=== PATIENT | male | born 1985 | race Caucasian/White ===

== ENCOUNTER 2017-07-12 22:41 | Emergency (ER) | payer SELFPAY ==
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
[2017-07-12] MEDS ORDERED: Cephalexin 500 MG Cap PO ONE (23:28)
[2017-07-12] MEDS ORDERED: Diphtheria/Tetanus Toxoids,Adult (Td) 0.5 ML SDV IM ONE (23:32)
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
== END 2017-07-13 00:07 | disposition home or self-care (01) ==
LOC: FB.ED 22:41
DX: S69.92XA Unspecified injury of left wrist, hand and finger(s), initial encounter (principal); Z23 Encounter for immunization; W26.0XXA Contact with knife, initial encounter
CPT/HCPCS: 73140; 90471; 90714; 99283; A9270

== ENCOUNTER 2017-08-08 02:01 | Emergency (ER) | payer SELFPAY ==
[2017-08-08] MEDS ORDERED: Morphine 10 MG/ML Syringe IM ONE (03:32)
[2017-08-08] MEDS ORDERED: Cephalexin 500 MG Cap PO ONE (04:46)
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
--- NOTE | 2017-08-09 11:36 | CR ---
INDICATION: Post reduction. RIGHT HAND: A single frontal view of the right hand was obtained post reduction and revealed no change in position or alignment of the distal 5th metacarpal fracture fragments. ANABELLE
== END 2017-08-08 05:10 | disposition home or self-care (01) ==
LOC: FB.ED 02:01
DX: S62.336A Displaced fracture of neck of fifth metacarpal bone, right hand, initial encounter for closed fracture (principal); M19.141 Post-traumatic osteoarthritis, right hand; F17.210 Nicotine dependence, cigarettes, uncomplicated; Z91.013 Allergy to seafood; Z91.09 Other allergy status, other than to drugs and biological substances; X58.XXXA Exposure to other specified factors, initial encounter
CPT/HCPCS: 26605; 29125; 73120; 73130; 96372; 99283; A9270; J2270

== ENCOUNTER 2017-08-09 06:15 | Emergency (ER) | payer SELFPAY ==
[2017-08-09] MEDS ORDERED: HYDROmorphone 2 MG/ML SDV IM ONE (06:47)
[2017-08-09] MEDS ORDERED: Ondansetron 8 MG Tab.DIS PO ONE (06:48)
--- NOTE | 2017-08-10 12:02 | ER ---
DATE SEEN: 08/09/2017 The patient was seen at 6:30 a.m. HISTORY OF PRESENT ILLNESS: This is a 32-year-old, who was seen by me yesterday on 08/08/2017, for a fracture of the neck of the fifth distal metacarpal that was partially displaced, and with reduction, angulation not changed, but there was increased closure of the fracture site. A splint was placed. The patient was dismissed with a prescription for Vicodin and also Keflex 500 mg t.i.d. He had an abrasion to his right first PIP dorsum, which he scraped off a blister that was there before and now presents because he was not able to purchase pain medicines or antibiotics and he is having terrible pain in his hand. He has not used Tylenol or ibuprofen as directed on the discharge instructions. He has no loss of sensation to his fingers. PHYSICAL EXAMINATION: GENERAL: An alert fellow who is tired, has not slept much. EXTREMITIES: He has mild ecchymosis to the right hand with moderate swelling. No evidence of erythema of his right index dorsum PIP abrasion. He can move his fingers and sensations intact to all fingers. Capillary refills intact. ASSESSMENT: 1. Excessive pain secondary to fracture, right fifth metacarpal neck. 2. Does not drink alcohol. 3. Mother of liver disease, father was not an alcoholic, did not drink. He had congestive heart failure. 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 He is a smoker of pack a day but does not drink alcohol, although he "stated he had 4 beers and one whiskey on the day of 08/08/2017, and he was more drunk than usual, the fact he otherwise has not drunk alcohol for 1-2 years. PLAN: The patient received a shot of Dilaudid 2 mg IM and Zofran sublingual 8 mg, dismissed, to have been picked up by a friend who has arrived here. The patient is to elevate his hand, use ice packs. Follow up with Orthopedics, Dr. Dumont this week. No evidence for compromised circulation or sensation of his right hand. He has moderate swelling and he again is reinforced to elevate his arm sufficiently to diminish the swelling. /[id number] SUSAN/PATSY
== END 2017-08-09 07:05 | disposition home or self-care (01) ==
LOC: FB.ED 06:15
DX: S62.336A Displaced fracture of neck of fifth metacarpal bone, right hand, initial encounter for closed fracture (principal); X58.XXXA Exposure to other specified factors, initial encounter; F17.210 Nicotine dependence, cigarettes, uncomplicated
CPT/HCPCS: 96372; 99282; A9270; J1170

== ENCOUNTER 2017-08-16 17:04 | Emergency (ER) | payer MEDICAID, OTHER ==
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
== END 2017-08-16 19:25 | disposition home or self-care (01) ==
LOC: FB.ED 17:04
DX: S62.336D Displaced fracture of neck of fifth metacarpal bone, right hand, subsequent encounter for fracture with routine healing (principal); F17.210 Nicotine dependence, cigarettes, uncomplicated; Z91.013 Allergy to seafood; Z91.09 Other allergy status, other than to drugs and biological substances; X58.XXXD Exposure to other specified factors, subsequent encounter
CPT/HCPCS: 99282; 99283